=== PATIENT | male | born 1960 | race Caucasian/White ===

== ENCOUNTER → 2022-05-20 10:08 | Outpatient (BNVA) | payer OTHER, SELFPAY | PROVIDERS: Visit Provider Physician Assistant | DX: S83.422A Sprain of lateral collateral ligament of left knee, initial encounter (principal); X50.1XXA Overexertion from prolonged static or awkward postures, initial encounter | CPT/HCPCS: 73564; 99204 ==

== ENCOUNTER → 2022-05-27 15:13 | Outpatient (BNVA) | payer OTHER, SELFPAY | PROVIDERS: Visit Provider Physician Assistant | DX: S83.422D Sprain of lateral collateral ligament of left knee, subsequent encounter (principal); X50.1XXD Overexertion from prolonged static or awkward postures, subsequent encounter | CPT/HCPCS: 99213 ==

== ENCOUNTER → 2022-06-08 09:37 | Outpatient (BNVA) | payer OTHER, SELFPAY | PROVIDERS: Visit Provider Internal Medicine | DX: S00.83XA Contusion of other part of head, initial encounter (principal); S80.02XA Contusion of left knee, initial encounter; S60.417A Abrasion of left little finger, initial encounter; W00.0XXA Fall on same level due to ice and snow, initial encounter | CPT/HCPCS: 70450; 73564; 99203 ==

== ENCOUNTER → 2022-06-10 15:16 | Outpatient (BNVA) | payer OTHER, SELFPAY | PROVIDERS: Visit Provider Physician Assistant | DX: S83.422D Sprain of lateral collateral ligament of left knee, subsequent encounter (principal); X50.1XXD Overexertion from prolonged static or awkward postures, subsequent encounter | CPT/HCPCS: 99214 ==

== ENCOUNTER 2022-06-19 16:03 | Outpatient (REF) | payer OTHER, SELFPAY ==
--- NOTE | ~2022-06-19 | MR_ITS ---
EXAMINATION: MR KNEE WITHOUT CONTRAST, LEFT CLINICAL INFORMATION: Left knee pain, soreness, stiffness. Difficulty with walking and running. Posterior and lateral pain following an injury one week ago. COMPARISON: Most recent left knee radiographs dated 06/08/2022. TECHNIQUE: MRI of the knee without contrast was performed using routine sequences on a high-field scanner. FINDINGS: MENISCI: Medial Meniscus: Nondisplaced, oblique tibial articular surface tear of the meniscal body extending through the posterior horn. Inner margin fraying of the posterior root. Lateral Meniscus: Mild inner margin fraying of the posterior root. LIGAMENTS: Cruciate: Diffuse thickening and increased T2 signal of the anterior cruciate ligament consistent with mucoid degeneration. More moderate degenerative signal within the posterior cruciate ligament. Collateral: Intact. EXTENSOR MECHANISM: Intact. ARTICULAR CARTILAGE/BONE: Patellofemoral Compartment: Patellar articular cartilage signal heterogeneity with partial-thickness fissuring at the patellar median ridge and lateral patellar facet. Central trochlea signal heterogeneity. Tiny marginal osteophytes. Medial Compartment: Mild articular cartilage signal heterogeneity and surface irregularity with tiny marginal osteophytes. Lateral Compartment: Mild articular cartilage signal heterogeneity with tiny marginal osteophytes. Articular cartilage loss and subchondral cystic change and marginal osteophytes at the proximal tibiofibular joint. JOINT FLUID AND BURSAE: [id number] joint effusion and small Sparrow's cyst. Anterior subcutaneous edema. MR/MR knee LT wo con IMPRESSION: Nondisplaced, oblique tibial articular surface tear of the medial meniscal body extending through the posterior horn. Inner margin fraying of the posterior root. Mild inner margin fraying of the lateral meniscus posterior root. 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 Mild tricompartmental osteoarthritis. [id number] joint effusion and small Sparrow's cyst.
== END 2022-06-19 16:04 | disposition home or self-care (01) ==
LOC: HO.MRI 16:03
PROVIDERS: Visit Provider Internal Medicine
DX: S83.92XA Sprain of unspecified site of left knee, initial encounter (principal)
CPT/HCPCS: 73721

== ENCOUNTER → 2022-06-24 15:19 | Outpatient (BNVA) | payer OTHER, SELFPAY | PROVIDERS: Visit Provider Physician Assistant | DX: S83.282D Other tear of lateral meniscus, current injury, left knee, subsequent encounter (principal); X50.1XXD Overexertion from prolonged static or awkward postures, subsequent encounter | CPT/HCPCS: 99213 ==